=== PATIENT | male | born 1955 | race Caucasian/White ===

== ENCOUNTER 2023-09-11 19:37 | Emergency (ER) | payer MEDICARE ==
[~2023-09-11 19:37] MED LIST: Iopamidol-370 76% 500 ML MDV (1 ML CHARGE) ONE
[2023-09-11] MEDS ORDERED: Ipratropium/Albuterol 3 ML NEB ONE (19:45)
[2023-09-11] MEDS ORDERED: Albuterol 2.5 MG (3 mL) NEB ONE (20:16)
[2023-09-11] MEDS ORDERED: Dexamethasone 10 MG/ML VIAL ONE (20:28)
[2023-09-11] MEDS ORDERED: LevoFLOXacin 750 mg/D5W 150 ml Premix Bag ONE (20:28)
[2023-09-11] MEDS ORDERED: Magnesium 2 GM/50 ML BAG (IN WATER) ONE (20:28)
[2023-09-11 20:30] LABS: #Basophils 0.1 thou/uL (0.0-0.2); #Monocytes 1.1 thou/uL (0.11-0.59); %Basophils 0.6 % (0.0-1.0); %Eosinophils 0.4 % (0.0-10.0); %Lymphocytes 30.8 % (21.0-51.0); %Monocytes 11.8 % (0.0-10.0); %Neutrophils 55.7 % (42.0-75.0); Hematocrit 42.4 % (42.0-52.0); Hemoglobin 15.5 g/dL (14.0-18.0); Mean Corpuscular HGB CONC 36.6 g/dL (32.0-36.0); Mean Corpuscular Hemoglobin 35.6 pg (27.0-31.0); Mean Corpuscular Volume 97.2 fl (78.0-98.0); Mean Platelet Volume 8.8 fL (7.4-10.4); Platelet Count 329 10x3/uL (130-400); Red Blood Cell (RBC) Count 4.36 mill/uL (4.70-6.10)
[2023-09-11 20:56] LABS: ALT (SGPT) 54 U/L (8-55); AST (SGOT) 36 U/L (5-34); Albumin 4.7 g/dL (3.4-4.8); Alkaline Phosphatase 43 U/L (40-110); Anion Gap 16 mmol/L (10-20); BUN (Urea Nitrogen) 12 mg/dL (8.4-25.7); Bilirubin, Total 1.3 mg/dL (0.2-1.2); Calc. Creatinine Clearance 0 mL/min (70-130); Calcium 9.1 mg/dL (7.8-10.44); Carbon Dioxide 19 mmol/L (23-31); Chloride 99 mmol/L (98-107); Estimated GFR 95; Globulin 3.2 g/dL (2.4-3.5); Glucose 97 mg/dL (80-115); Magnesium 2.1 mg/dL (1.6-2.6); Protein, Total 7.9 g/dL (5.8-8.1); Sodium 131 mmol/L (136-145)
[2023-09-11 21:00] LABS: Troponin I Less than 0.010 ng/mL (< 0.028)
[2023-09-11 21:19] LABS: Actual Bicarbonate (HCO3a) 16.4 mEq/L (22-28); Analyzer IN Cardio ER; Base Excess (BEa) -3.3 mEq/L (-2.0 to +3.0); Calcium, Ionized (arterial) 1.09 mmol/L (1.12-1.30); Carboxyhemoglobin (COHb) 0.2 gm% (0.0-3.0); Hematocrit-ABG 43 % (42.0-52.0); Hemoglobin (Hb) 14.5 g/dL (14.0-18.0); O2 Tension (PaO2), arterial 89.6 mmHg (> 80.0); Potassium - ABG Lab 2.95 mmol/L (3.70-5.30); pH, Arterial 7.551 (7.35-7.45)
[2023-09-11 21:26] LABS: CO2 Tension 19.1 mmHg (35.0-45.0); Puncture Site RRA
[2023-09-11] MEDS ORDERED: LORazepam 2 MG/ML SYR.(CARPUJECT) ONE (21:38)
[2023-09-11 22:03] LABS: Bacteria/HPF None Seen HPF (None Seen); Bilirubin Negative (Negative); Blood, Urine Negative (Negative); CAUTI Indications for Culture Fever or rigors; Clarity Clear (Clear); Glucose, Urine (Dipstick) Normal (Negative); Ketone, Urine 20 mg/dL (Negative); Leukocyte Negative Leu/uL (Negative); Nitrite Negative (Negative); Protein, Urine (Dipstick) Negative (Neg-Trace); RBC/HPF 0-3 HPF (0-3); Squamous Epithelial 0-3 HPF (0-3); Urobilinogen Normal mg/dL (Less than 2); WBC/HPF 0-3 HPF (0-3); pH, Urine 6.5 (5.0-9.0)
[2023-09-11 22:05] LABS: Urine Culture Reflex No No
== END 2023-09-11 23:10 | disposition home or self-care (01) ==
LOC: ERS 19:37
DX: J11.1 Influenza due to unidentified influenza virus with other respiratory manifestations (principal); R06.4 Hyperventilation
CPT/HCPCS: 36600; 71045; 71275; 80053; 81001; 82805; 83605; 83735; 83880; 84484; 85025; 85379; 87040; 93005; 94640 ×2; 94660; 94760; 96365; 96368; 96375; 99285; J2060; J1100; J1956; J3475; J7611; J7620; Q9967